=== PATIENT | male | born 1975 | race Caucasian/White ===

== ENCOUNTER 2025-06-14 09:13 | Outpatient (AMB) | payer BC, SELFPAY ==
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
[2025-06-14 09:16] VITALS: BP 132/86; PULSE 68; TEMP 36.6; O2SAT 99; BMI 22.6
== END 2025-06-14 09:56 | disposition home or self-care (01) ==
LOC: HO.HMCH 09:13
DX: A60.02 Herpesviral infection of other male genital organs (principal); M54.2 Cervicalgia; M54.50 Low back pain, unspecified; G89.29 Other chronic pain; K64.9 Unspecified hemorrhoids

== ENCOUNTER → 2025-06-14 09:13 | Outpatient (BNVA) | payer BC, SELFPAY | DX: R00.2 Palpitations (principal); K64.9 Unspecified hemorrhoids; B00.9 Herpesviral infection, unspecified; A60.02 Herpesviral infection of other male genital organs; M54.2 Cervicalgia; M54.50 Low back pain, unspecified; G89.29 Other chronic pain | CPT/HCPCS: 96127 ==